=== PATIENT | female | born 1995 | race Caucasian/White ===

== ENCOUNTER → 2019-10-09 | Outpatient (REF) | payer OTHER | LOC: M SFHCLERA 14:34 | PROVIDERS: ATTEND Physician Assistant | DX: R39.9 Unspecified symptoms and signs involving the genitourinary system (principal) | CPT/HCPCS: 81002; 81025; 87088; 87186; G0463 ==

== ENCOUNTER → 2019-10-24 | Outpatient (REF) | payer OTHER ==
[2019-10-25 12:45] LABS: CHLAMYDIA DNA AMPLIFICATION NEGATIVE (NEGATIVE); GC DNA AMPLIFICATION NEGATIVE (NEGATIVE)
== END ==
LOC: M SFHCWAGY 10:13
PROVIDERS: ATTEND Obstetrics & Gynecology
DX: Z01.419 Encounter for gynecological examination (general) (routine) without abnormal findings (principal)

== ENCOUNTER → 2020-01-10 | Outpatient (REF) | payer OTHER | LOC: M SFHCLERA 13:30 | PROVIDERS: ATTEND Physician Assistant | DX: R30.0 Dysuria (principal) | CPT/HCPCS: 81002; 81025; 87088; 87186; G0463 ==

== ENCOUNTER → 2020-01-19 | Outpatient (REF) | payer OTHER | LOC: M SFHCLERA 17:00 | PROVIDERS: ATTEND Physician Assistant | DX: N30.01 Acute cystitis with hematuria (principal) | CPT/HCPCS: 81002; 81025; 87086; G0463 ==

== ENCOUNTER → 2020-02-01 | Outpatient (REF) | payer OTHER ==
[2020-02-01 13:10] LABS: APPEARANCE, URINE CLEAR (CLEAR); BACTERIA, URINE AUTO NEGATIVE (NEGATIVE); BILIRUBIN, URINE AUTO NEGATIVE (NEGATIVE); BLOOD, URINE BLOOD NEGATIVE (NEGATIVE); COLOR, URINE STRAW (YELLOW); GLUCOSE, URINE (UA) AUTO NEGATIVE (NEGATIVE); KETONE, URINE AUTO NEGATIVE (NEGATIVE); LEUKOCYTE ESTERASE, URINE AUTO NEGATIVE (NEGATIVE); NITRITE, URINE AUTO NEGATIVE (NEGATIVE); PROTEIN, URINE AUTO NEGATIVE (NEGATIVE); RBC, URINE AUTO 0 /HPF (0-3); SQUAMOUS EPITHELIAL CELL UR AU 0 /HPF (0-6); UROBILINOGEN, URINE AUTO 0.2 mg/dL (0.0-2.0); WBC, URINE AUTO 0 /HPF (0-3)
== END ==
LOC: M SMT 12:44
PROVIDERS: ATTEND Nurse Practitioner Women's Health
DX: N39.0 Urinary tract infection, site not specified (principal)

== ENCOUNTER → 2020-02-01 | Outpatient (CLI) | payer OTHER ==
--- NOTE | 2020-02-01 12:01 | REP ---
RENAL ULTRASOUND: Real-time sonographic evaluation of the kidneys is performed. Kidneys are normal in size and echotexture, right kidney measuring 11.5 x 5.2 x 3.9 cm and left kidney 11.8 x 4.7 x 3.8 cm. There is no hydronephrosis, abdominal renal mass or nephrolithiasis bilaterally. IMPRESSION: Negative renal ultrasound. Electronically Signed by Adeel Smith MD 02/01/2020 02:07 P
--- NOTE | 2020-02-01 12:02 | REP ---
BLADDER ULTRASOUND: Real-time sonographic evaluation of the urinary bladder performed. Bladder measures 8.4 x 10.2 x 5.9 cm for a total volume of 325 mL. No mass or calculus is seen. There are bilateral ureteral jets in the urinary bladder with Doppler color evaluation. There is no wall thickening. Postvoid residual is 12 mL which is 4% of the original volume. IMPRESSION: Unremarkable bladder ultrasound. Electronically Signed by Adeel Smith MD 02/01/2020 02:07 P
== END ==
LOC: M RAD 10:27
PROVIDERS: ATTEND Nurse Practitioner Women's Health
DX: N39.0 Urinary tract infection, site not specified (principal); R39.89 Other symptoms and signs involving the genitourinary system

== ENCOUNTER → 2021-02-25 | Outpatient (REF) | payer OTHER ==
[2021-02-25 17:02] LABS: CHLAMYDIA DNA AMPLIFICATION NEGATIVE (NEGATIVE); GC DNA AMPLIFICATION NEGATIVE (NEGATIVE)
== END ==
LOC: M SFHCWAGY 14:54
PROVIDERS: ATTEND Obstetrics & Gynecology
DX: Z12.4 Encounter for screening for malignant neoplasm of cervix (principal); Z11.3 Encounter for screening for infections with a predominantly sexual mode of transmission

== ENCOUNTER → 2021-07-06 | Outpatient (REF) | payer OTHER | LOC: M SFHCWAGY 12:53 | PROVIDERS: ATTEND Advanced Practice Midwife | DX: R30.0 Dysuria (principal) ==